=== PATIENT | female | born 1965 | race Caucasian/White ===

== ENCOUNTER 2022-10-05 12:35 | Outpatient (RCR) | payer OTHER, SELFPAY | END 2022-10-16 13:47 | disposition home or self-care (01) | LOC: HO.WCC 12:35 | PROVIDERS: PCP Physician Assistant; Visit Provider Physician Assistant | DX: L98.8 Other specified disorders of the skin and subcutaneous tissue (principal); L20.84 Intrinsic (allergic) eczema; L30.9 Dermatitis, unspecified; G35 Multiple sclerosis; F12.90 Cannabis use, unspecified, uncomplicated; I10 Essential (primary) hypertension | CPT/HCPCS: 97602 ==